=== PATIENT | male | born 1985 | race Caucasian/White ===

== ENCOUNTER 2017-03-03 16:14 | Emergency (ER) | payer SELFPAY ==
[~2017-03-03] VITALS: Ht 162.6 cm; Wt 65.0 kg
[~2017-03-03 16:14] MED LIST: BACT800T5 PO
[2017-03-03 16:16] VITALS: BP 122/79; PULSE 88; RESP 20; TEMP 98.6; O2SAT 97
--- NOTE | 2017-03-03 16:37 | PD ---
HPI Chief Complaint: Musculoskeletal Complaint Time Seen by Provider: 16:28 Travel History International Travel<30 days: No Contact w/Intl Traveler<30days: No Traveled to known affect area: No History of Present Illness HPI 31-year-old male presents to the emergency Department requesting a work release note to return back to work tomorrow. He called out today because he injured his ankle sliding down a ladder while at work yesterday. He said he only hit the lateral aspect of his ankle on the ladder as he slid down it. He denies traumatic injury to the ankle. Denies paresthesias, loss of sensation, decreased range of motion, decreased strength to the affected extremity. Has been ambulatory on the affected extremity. Has not taken any medications or tried any treatments to alleviate his symptoms. Pain is aggravated with palpation. Has no other medical complaints. No known allergies. No other modifying factors or associated signs and symptoms. History Social History Alcohol Use: Yes Tobacco Use: Yes Allergies-Medications (Allergen,Severity, Reaction): Coded Allergies: No Known Allergies (Unverified , 03/03/17) Reported Meds & Prescriptions Reported Meds & Active Scripts Active Bactrim DS (Sulfamethoxazole-Trimethoprim DS) 1 Tab Tab 1 Tab PO Q12 7 Days Review of Systems Except as stated in HPI: all other systems reviewed are Neg Physical Exam Narrative GENERAL: Well-nourished, well-developed male patient, in no acute distress SKIN: Warm and dry. HEAD: Atraumatic. Normocephalic. EYES: Pupils equal and round. No scleral icterus. No injection or drainage. ENT: Mucosa pink and moist. Airway patent. NECK: Trachea midline. CARDIOVASCULAR: Regular rate. RESPIRATORY: No accessory muscle use. GASTROINTESTINAL: Flat. MUSCULOSKELETAL: Left ankle with point tenderness to the lateral malleolar zone with palpation; mild edema to the lateral malleolar aspect; without erythema, ecchymosis; no obvious deformity; sensory intact; 2+ pedal pulse. No obvious deformities. No clubbing. No cyanosis. No edema. NEUROLOGICAL: Awake and alert. Oriented 3. No obvious cranial nerve deficits. Motor grossly within normal limits. Normal speech. PSYCHIATRIC: Appropriate mood and affect; insight and judgment normal. Data Data Last Documented VS Vital Signs Date Time Temp Pulse Resp B/P (MAP) Pulse Ox O2 Delivery O2 Flow Rate FiO2 9/18/17 16:16 98.6 88 20 122/79 (30) 97 Room Air [facility] Medical Screen Exam Complete: Yes Emergency Medical Condition: No Differential Diagnosis Medical clearance, Ankle contusion, ankle sprain Narrative Course 31-year-old male requesting work release note to return back to work after injuring his ankle while at work yesterday. I offered to x-ray the ankle and the patient declined. He says he knows it is not broken and all he wants is a work release note so he can go back to work tomorrow. Patient is ambulatory with normal gait. Vital signs are stable and the patient is stable for outpatient follow-up and treatment. The patient has no urgent or emergent medical complaints. There is no emergent or urgent medical need at this time. I instructed the patient to follow up with their primary care provider. A medical screening exam was performed: At the time of evaluation the presenting medical condition was determined not to be of an emergent nature. The patient was given the option of receiving additional care, but declined. Patient was given options for additional community resources from which to obtain care. The Patient Has Been advised to seek medical attention for their presenting complaint. The patient has been advised to return to the ER at any time if an emergent condition develops. Primary Impression: Encounter for medical screening examination Condition: Stable Yen Velasquez [employer] Mar 03, 2017 16:37
== END 2017-03-03 16:36 | disposition left against medical advice (07) ==
LOC: NEPK 16:14
DX: M25.579 Pain in unspecified ankle and joints of unspecified foot (principal)
CPT/HCPCS: 99281